=== PATIENT | male | born 1960 | race Caucasian/White ===

== ENCOUNTER 2017-11-03 05:27 | Inpatient (IN) | payer BC, OTHER ==
[~2017-11-03] VITALS: Ht 188 cm; Wt 95.3 kg
--- NOTE | ~2017-11-03 | HC ---
[facility] [place] [address] CONSULTATION Name: BHUMI HUTCHINSON Room #: 409-P ADM IN M.R.#: [id number] Admission: 11/03/17 Attend Phys: Moshe Herron MD Discharge: Date of : 58 Report #: [id number] THIS REPORT FOR: //name// CC: Moshe DAWN REASON FOR CONSULTATION: I was asked to evaluate concerning neuropathic foot wound with secondary infection and osteomyelitis of the metatarsal head. HISTORY OF PRESENT ILLNESS: The patient was a 57-year-old with known bilateral lower extremity peripheral neuropathy. He reports high arches and issues with calluses to the first metatarsal plantar surface. First of this year, he developed a fluctuant area over the left first metatarsal plantar region. This spontaneously drained purulent material. He did have outpatient culture results. He did not know any specific results. He was treated with oral antibiotic therapy, specifics he was unaware of. He was [facility]. Despite wound care and oral antibiotic therapy, he did not improve. He had MRI scan, which showed evidence of osteomyelitis of the first metatarsal head. He was most recently placed on ciprofloxacin, which he continued prior to his admission. He reports peripheral vascular studies showing no evidence of high grade obstruction. These results have not been confirmed. He denied any fever, chills or sweats. 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 He was given the options of surgical debridement versus ray amputation. The patient elected to proceed with ray amputation. This was performed yesterday by Dr. Herron with no intraoperative complications. Review of the operative note report, it is noted that he had purulent fluid adjacent to the metatarsal head. This was cultured and debrided. Tissue was sent for pathology and culture. The patient was given cefazolin perioperatively. The patient reports evaluation for his peripheral neuropathy by neurologist without a specific diagnosis. He feels it is more likely related to his 40 years working on his front tree loader meat every day with the vibration issues. He has no history of diabetes. No coronary artery disease. The patient was on no medications prior to his admission other than his antibiotics. PAST MEDICAL HISTORY: Otherwise remarkable for tennis elbow and gastroesophageal reflux . ALLERGIES: None. MEDICATIONS: As noted on his OCT. Most recently, ciprofloxacin and cefazolin. FAMILY HISTORY: Noncontributory. SOCIAL HISTORY: Noncontributory other than noted above. He is a nonsmoker with no significant alcohol intake. [address] [address] CONSULTATION Name: BHUMI HUTCHINSON Room #: 409-P [facility]#: [id number] Admission: 11/03/17 Attend Phys: Moshe Herron MD Discharge: Date of : 58 Report #: [id number] PHYSICAL EXAMINATION: VITAL SIGNS: Afebrile, hemodynamically stable. GENERAL: He is alert and cooperative and pleasant, in no acute distress. HEENT: Unremarkable. NECK: Supple. No adenopathy. LUNGS: Clear. HEART: Regular. ABDOMEN: Soft and nontender. EXTREMITIES: Pulses in the left lower extremity normal in the groin, popliteal region. Unable to assess his foot due to his surgical wrap. He had good capillary refill in his toes 2, 3, 4 and 5. He had adequate sensation to fine touch in his toes. His right foot had evidence of a callus over the first metatarsal head, plantar surface. No surrounding erythema. He does have high arches. LABORATORY STUDIES: Gram stain shows no organisms with no growth so far. IMPRESSION: A 57-year-old with peripheral neuropathy and left first metatarsal head osteomyelitis with associated soft tissue abscess. They want following ray amputation. I do not have any outside microbiology reports. I do not have report of the MRI scan or arterial studies. PLAN: At this time, I would elect to continue his IV antibiotic therapy until we get adequate wound healing. We will obtain laboratory studies, place a PICC line, start on ceftriaxone pending further studies. He will have outpatient therapy arranged and will follow up in [facility] under the direction of Dr. Hernandez, Infectious Diseases. <ELECTRONICALLY SIGNED> By: Alpesh Hurley MD 11/05/17 0941 [id number] Alpesh Hurley MD /nt
--- NOTE | ~2017-11-03 | O ---
[facility] [place] [address] OPERATIVE REPORT Name: BHUMI HUTCHINSON Room #: 409-P [facility] IN .R.#: [id number] Admission: 11/03/17 Attend Phys: Moshe Herron MD Discharge: 11/05/17 Date of : 58 Report #: [id number] THIS REPORT FOR: //name// CC: Moshe DAWN DATE OF SERVICE: 11/03/2017 PREOPERATIVE DIAGNOSIS: Left foot osteomyelitis. POSTOPERATIVE DIAGNOSIS: Left foot osteomyelitis. PROCEDURE: Left foot first ray amputation. SURGEON: Moshe Herron M.D. ANESTHESIA: General. ESTIMATED BLOOD LOSS: Minimal. DRAINS: No drains. TOURNIQUET TIME: 30 minutes. DESCRIPTION OF PROCEDURE: The patient brought to the operating room where he was placed under general anesthesia. Once under adequate general anesthesia, his left lower extremity was prepped and draped in a sterile manner. The extremity was elevated and tourniquet placed to 300 mmHg. A racquet-shaped incision was then made about the great toe proximal phalanx and dissection carried directly down to the bone. Exposure of the metatarsal and proximal phalanx was then made sharply. Purulent fluid was identified and subsequently irrigated from the wound. The wound was debrided with a rongeur of any necrotic tissue. The wound was irrigated copiously and closed with 2-0 nylon for the skin over a Jesse drain. There were no complications from the procedure. Tourniquet was let down at 30 minutes. Toes were pink and warm with good capillary refill. There were no complications from the procedure. The patient tolerated the procedure well and went to the recovery room without incident. <ELECTRONICALLY SIGNED> By: Moshe Herron MD 12/08/17 0740 [id number] [id number] Moshe Herron MD /nt
--- NOTE | ~2017-11-03 | S ---
[facility] [place] [address] SURGICAL PATH RPT PROCEDURE Name: DONOVAN HUTCHINSON Room #: 409-P ADM IN M.R.#: [id number] Admission: 11/03/17 Date of : 58 Discharge: Report #: [id number] Path Case #: [id number] PATHOLOGY REPORT COLLECTION DATE: 11/03/2017 RECEIVED DATE: 11/03/2017 SUBMITTING PHYS: Dr. Moshe Herron OTHER PHYS: Vel Swann M.D. SPECIMEN(S) RECEIVED: A.Left 1st ray * * * * * * * * * * * * FINAL DIAGNOSIS: Left first ray, amputation: - Marked acute inflammation involving underlying bone associated with osteonecrosis, consistent with acute osteomyelitis. - Skin showing pseudoepitheliomatous changes along with acute inflammation. - More bone margin viable and unremarkable. (IUV:db; 11/04/2017) PATHOLOGIST: Jennifer Suarez M.D. REPORT ELECTRONICALLY SIGNED BY: Jennifer Suarez M.D. DATE/TIME: 11/05/2017 13:33 * * * * * * * * * * * * GROSS PATHOLOGY: Received in formalin labeled "Donovan Hutchinson, left first ray," is a toe amputation specimen measuring 9.2 x 3.2 by up to 4.8 cm in greatest dimensions. The bone margin is jagged in appearance. A nail is present in the nailbed that is translucent and pale white-bird appearance. The epidermal surface is slightly wrinkled and pale pink-bird in appearance, with no lesions or masses noted grossly. The metatarsal grossly appears to join the proximal phalanx at a 90 angle (gross photograph is taken). The surgical margin is inked black. A full-thickness cross section is submitted proximal to distal in cassettes A1 through A6, following decalcification. (DAC; 11/04/2017) CLINICAL HISTORY: Left first osteomyelitis INITIAL CPT CODE(S): A; [address]93, [address] [address] SURGICAL PATH RPT PROCEDURE Name: DONOVAN HUTCHINSON Room #: 409-P [facility] IN M.R.#: [id number] Admission: 11/03/17 Date of : 58 Discharge: Report #: [id number] Path Case #: [id number] Professional services performed by [facility] [address], [place] [address] Technical services performed by [facility] at [address] [place] [address], [facility] [address] [address]. [facility] [address] [place] [address] PHONE: [phone] DIRECTOR: Prashanth Lozada M.D. * * * END OF REPORT * * *
[~2017-11-03 05:27] MED LIST: CIPRO500 MG PO
[2017-11-03 14:08] VITALS: BP 156/88
[2017-11-03 17:00] VITALS: BP 127/77
[2017-11-03 17:50] VITALS: BP 114/79
[2017-11-03 18:30] VITALS: BP 139/103
[2017-11-03 20:00] VITALS: BP 136/78
[2017-11-04] VITALS: BP 105/61
[2017-11-04 04:00] VITALS: BP 125/82
[2017-11-04 10:13] VITALS: BP 122/72
[2017-11-04 13:38] LABS: ABSOLUTE NEUTROPHILS 7.8 thou/uL (1.4-8.2); BASOPHILS 0.4 % (0.0-2.0); EOSINOPHILS 0.5 % (0.0-3.0); HEMATOCRIT 36.2 % (42.0-52.0); HEMOGLOBIN 12.4 gm/dL (14.0-18.0); LYMPHOCYTES 18.3 % (24.0-44.0); MCH 31.1 pg (26.0-34.0); MCHC 34.2 g/dL (28.0-37.0); MCV 90.9 fL (80.0-100.0); PLATELET COUNT 445 thou/uL (150-400); POLYS 71.8 % (36.0-66.0); RBC 3.98 mil/uL (4.50-6.00); RDW 13.8 % (10.5-14.5); WBC 10.9 thou/uL (4.0-11.0)
[2017-11-04 13:49] LABS: ALBUMIN 2.9 g/dL (3.4-5.0); CALCIUM 8.8 mg/dL (8.5-10.1); CREATININE 1.1 mg/dL (0.7-1.3); POTASSIUM 3.7 mmol/L (3.5-5.1); TOTAL BILIRUBIN 0.4 mg/dL (<0.1-1.0); TOTAL PROTEIN 6.7 g/dL (6.4-8.2)
[2017-11-04 16:00] VITALS: BP 132/57
[2017-11-04 20:09] VITALS: BP 155/81
[2017-11-05 04:00] VITALS: BP 115/72
[2017-11-05 07:35] VITALS: BP 113/85
[2017-11-05 14:23] VITALS: BP 113/85
[2017-11-05 15:08] VITALS: BP 113/85
[2017-11-05] MEDS ORDERED: CEFTRIAXONE2 G1 IVPB (15:08)
[2017-11-05 16:00] VITALS: BP 129/75
[2017-11-05 16:02] VITALS: BP 113/85
== END 2017-11-05 17:50 | disposition home health service (06) | DRG 505 ==
LOC: TBA 05:27 → 4N 05:27 → PRE 12:39 → 4N 17:17 → ENTRNSPT 11-05 17:04 → 4N 11-05 17:50
PROVIDERS: Specialist
PROC: 0Y6Q0Z0 Detachment at Left 1st Toe, Complete, Open Approach (ICD-10-PCS; principal; 2017-11-03)
PROC: 05H933Z Insertion of Infusion Device into Right Brachial Vein, Percutaneous Approach (ICD-10-PCS; 2017-11-04)
DX: M86.8X8 Other osteomyelitis, other site (principal); G62.9 Polyneuropathy, unspecified; K21.9 Gastro-esophageal reflux disease without esophagitis; Z79.899 Other long term (current) drug therapy; Z28.21 Immunization not carried out because of patient refusal
CPT/HCPCS: 10790; 27000; 50010; 50101; 50386; 50951; 56525; 57091; 62110; 62900; 70005